=== PATIENT | female | born 1990 ===

== ENCOUNTER → 2019-12-09 15:51 | Outpatient (ROUT) | payer OTHER, MEDICAID, SELFPAY | PROVIDERS: Visit Provider Nurse Practitioner Obstetrics & Gynecology | DX: Z34.90 Encounter for supervision of normal pregnancy, unspecified, unspecified trimester (principal); Z36.85 Encounter for antenatal screening for Streptococcus B; Z3A.36 36 weeks gestation of pregnancy | CPT/HCPCS: 87081 ==

== ENCOUNTER 2020-01-06 23:17 | Inpatient (IN) | payer OTHER, MEDICAID, SELFPAY ==
[2020-01-06 23:35] VITALS: BP 101/63
--- NOTE | 2020-01-06 23:37 | P.HPOB_ITS ---
OB HPI Date/Time Date of admission: 01/06/20 Date Patient Seen: 01/06/20 Time Patient Seen: 23:20 History of Present Condition Chief complaint: evaluation of labor : 1 Para: 0 Estimated Date of Delivery: 01/04/20 Estimated Gestational Age (weeks): 40.2 Narrative: Francheska Stringer is a 29 year old female @ 40wks2 days by sure LMP and early US who presents for evaluation of labor. Has had strong contractions since 8pm. +FM. NO VB or LOF. Breathing through regular contractions, feeling lots of low back pain. Uncomplicated PN care w/ CNM. Desires low intervention , declines SL IV. , Eliel is present and supportive. History of Present care: good care, initiated at week # (11), number of visits (10) and pounds weight gain (28) Dating criteria: LMP confirmed by 1st trimester US Ultrasounds: normal mid trimester US Obstetrical complications: none Medical complications: none Preadmission Labs Blood type: O (+) positive -: Antibody screen: negative, GBS status: negative, HBsAG: negative, HIV: negative and RPR/VDLR: negative -: Chlamydia screen: not detected and Gonorrhea screen: not detected -: Rubella: immune HCT: 33.1 HCAB: negative 1 hr GTT: 94 Evaluation Evaluation Baseline heart rate: 150 Variability: Moderate (11-25) monitor accelerations: Present monitor decelerations: Absent Uterine Contraction Intensity: Strong/Firm Category of Tracing: Reactive Cervical dilation (cm): 4 Cervical effacement (%): 90 station: 0 PFSH Family History (Updated 01/07/20 @ 00:29 by Samantha Real CNM) Father Cancer Brother Schizophrenia Social History (Updated 01/07/20 @ 00:29 by Samantha Real CNM) marital status: household members: spouse lives independently: Yes Smoking Status: Never smoker Meds Home Medications and Allergies Home Medications Medication Instructions Recorded Confirmed Type 01/07/20 History ferrous sulfate 01/07/20 History Allergies Allergy/AdvReac Type Severity Reaction Status Date / Time No Known Drug Allergies Allergy Verified 01/07/20 00:31 Review of Systems Review of Systems ROS: Yes All systems reviewed with the patient and are negative except as ot herwise documented Exam Vital Signs (past 8 hours): BP 101/63, [id number], T35.9C Temporal Uterus Location (Fundal Height): 40 Presentation: vertex Objective Labs Result Diagrams: 01/06/20 23:57 Assessment and Plan Assessment and Plan Assessment and Plan narrative: A: Term primipara Active labor No indication for GBS prophylaxis Cat I FHR P: Admit, routine orders w/ CBC, T&S and COVID19 screen. May switch to IA. Labor support, PRN. Reassess in 4 hours or sooner, PRN.
[2020-01-07 00:08] LABS: Add Manual Diff / Slide Review NO; Basophils Absolute Auto 100 /uL (0-100); Basophils Percent Auto 0.8 % (0-2); Eosinophils Absolute Auto 500 /uL (0-450); Eosinophils Percent Auto 3.1 % (2-4); Hematocrit 38.2 % (36-46); Lymphocytes Absolute Auto 1800 /uL (1100-4500); Lymphocytes Percent Auto 11.4 % (25-40); Mean Corpuscular Hemoglobin 31.4 PG (26-34); Mean Corpuscular Volume 92.4 fL (80-100); Monocytes Absolute Auto 1000 /uL (0-900); Monocytes Percent Auto 6.4 % (3-14); Neutrophils Absolute Auto 12500 /uL (1500-7000); Neutrophils Percent Auto 78.3 % (50-75); Platelet Count 226 X10^3/uL (150-400); Red Blood Cell Count 4.14 X10^6/uL (4.0-5.2); Red Cell Distribution Width 13.5 % (11.6-14.8); White Blood Cell Count 15.9 X10^3/uL (4.5-11.0)
[2020-01-07 01:00] LABS: COVID19 -Nasal RAPID Negative (Negative)
[2020-01-07] MEDS: CALCIUM CARBONATE 500 MG TAB 1000 MG PO (03:12)
--- NOTE | 2020-01-07 03:42 | PM.OBPNLAB ---
Date/Time Date Patient Seen: 01/07/20 Time Patient Seen: 03:20 Pain Control Pain control: tolerating well Comments: Moaning with strong contractions. Labored well in the tub for several hours. Now on hands and knees on the floor in the room w/ CUB and pillows. Declines CE. Labs: [id number] upon admission. Pelvic Exam Dilation (cm): 4 Effacement (%): 90 station: 0 Comments: Bloody show Contractions Contractions on admission: regular Monitor mode: Palpation Pitocin rate (mU/min): 0 Contraction frequency (min): 3 Contraction duration (min): 1 Contraction pattern: Regular Contraction intensity: Strong/Firm Status status: Category l Heart Rate Baseline: 140 Comments: FHR remains reassuring by IA Q30 minutes Assessment and Plan Assessment: active labor Plan: continuous present management Comments: Will defer CE until 6 hours from admission, per patient request. Continuous labor support. Reassess in 2 hours or sooner, PRN.
--- NOTE | 2020-01-07 08:02 | PM.OBPNLAB ---
Date/Time Date Patient Seen: 01/07/20 Time Patient Seen: 05:20 Pain Control Pain control: tolerating well Comments: Coping well, though very tired. Has been able to sleep for a few minutes between contractions. VS: BP 110/71, HR 85bpm, T36.4C Temporal Pelvic Exam Dilation (cm): 8 Effacement (%): 100 station: 0 Amniotic membrane status: Intact Contractions Monitor mode: Palpation Pitocin rate (mU/min): 0 Contraction frequency (min): 5 Contraction duration (min): 1 Contraction pattern: Regular Contraction intensity: Strong/Firm Status status: Category l Heart Rate Baseline: 140 Comments: Reassuring by IA Assessment and Plan Assessment: active labor Plan: continuous present management Comments: Countinue expectant management of labor with continuous labor support and IA. Anticipate NSVB.
[2020-01-07] MEDS: OXYTOCIN 10 UNIT/ML VIAL IM (10:13)
--- NOTE | 2020-01-07 10:42 | P.PCNOB_ITS ---
Labor & Delivery Delivery date: 01/07/20 Intrapartal events: None Cervical ripening method: none Induction method: none Delivery monitor: external FHT Route of delivery: L&D Laceration Description: Perineal - 2nd Degree Delivery repair: chromic (3.0) Estimated blood loss (mL): 300 Anesthesia type: None Narrative: Patient with spontaneous urge to push while on the toilet. Was able to push past anterior lip over a 30 minute period. FHR remained reassuring by intermittent auscultation throughout second stage. NSVB of a vigorous baby girl in CALLIE position. There was no NC and easy delivery of the shoulders after manual reduction of a compound left hand. [place] was placed on maternal ab domen for drying and skin to skin. Patient declined active management of the third stage of labor. After cessation of pulsation, the cord was double clamped by SNM and cut by FOB. hospital cord blood hold sample was collected. Gentle cord traction and single maternal push led to spontaneous, Schultze delivery of an apparently intact placenta, membranes and 3VC. Fundus was massaged firm with brisk bleeding. Pitocin 10 units IM was given at that time w/ patient's verbal consent. Inspection revealed a 2nd degree perineal laceration which was repaired in the usual fashion w/ 3.0 chromic under adequate 1% lidocaine local. Fundus firm with minimal bleeding at that time. QBL 300mL. Both mother and baby stable and skin to skin as I left the room. [place] Baby 1: Infant gender: Female Presentation: vertex position: Right Occiput Anterior Placenta delivery description: Spontaneous cord vessel description: 3 Vessels score (1 min): 9 score (5 min): 9 Narrative: Compound left hand Plan for aftercare: Routine pP orders. Anticipate d/c to home in am.
[2020-01-07] MEDS: DERMOPLAST SPRAY 20% 60 ML 1 SPRAY TOP (13:12)
[2020-01-07] MEDS: LANOLIN OINT 7 GM 1 APPLIC TOP (19:23)
--- NOTE | 2020-01-08 07:59 | P.DS_ITS ---
Discharge Providers Provider Date of admission: 01/06/20 23:17 Discharge Date: 01/08/20 Consults: 01/08/20 10:41 Consult to [employer]er Routine Comment: Discharge provider: Samantha Real CNM Summary Discharge Diagnosis (1) Second degree perineal laceration during delivery: Status: Acute Problem Details: Patient sitting up in bed, nursing her daughter, ready for d/c to home today. Voiding and ambulating independently. Lochia light, no clots. Perineum sore, but with less swelling. Has declined PO pain medication. Tolerating general diet. present and supportive. Time Spent with Patient Time attestation: Total time spent providing and/or coordinating discharge services: 25 min Objective Labs Result Diagrams: 01/06/20 23:57 Exam Vital Signs (past 8 hours): BP 104/62, [id number], RR14/min, T 98.4 Other: Fundis firm @ u-1, lochia light, no clots, perineum well approximated. Psych Appearance: grossly normal Affect: normal affect Thought Process: normal Discharge Plan Discharge Plan Patient Disposition: Home Discharge orders & Medications Prescriptions: New acetaminophen 325 mg Tablet 650 mg PO Q6HR PRN (Reason: Pain, Mild (1-3)) 14 Days Qty: 60 RF: 1 docusate sodium [DOK] 100 mg Capsule 100 mg PO BID 14 Days Qty: 28 RF: 0 ibuprofen 600 mg Tablet 600 mg PO Q6HR PRN (Reason: Pain, Mild (1-3)) 14 Days Qty: 60 RF: 1 Continued 1 tablet RF: 0 Discontinued ferrous sulfate 1 tablet RF: 0 Follow up/Referrals: Samantha Real CNM [[employer]] - (Follow-up by Telehealth Friday01/21/20 @ 1000 Follow-up in office Friday02/18/20 @ 1:15pm) Diet/Activity/Treatments Diet: Regular Activity: Pelvic rest x 6 weeks Skin/Wound/Dressing Care Report to your healthcare provider any signs of infection, such as:: chills, fever, increased pain, unusual drainage and unusual redness Visit Report/Discharge Packet Instructions: DI for Depression
[2020-01-08] MEDS: PRENATAL VIT,CALC/IRON/FOLIC 1 TABLET 1 TAB PO (09:41)
[2020-01-08 10:50] VITALS: BP 102/63; PULSE 77; RESP 17; TEMP 36.6
[2020-01-08] MEDS: DOCUSATE 100 MG CAPSULE PO (12:45)
== END 2020-01-08 17:00 | disposition home or self-care (01) | DRG 560 ==
PROVIDERS: Admitting Provider Nurse Practitioner Obstetrics & Gynecology; Referring Provider Nurse Practitioner Obstetrics & Gynecology; Visit Provider Nurse Practitioner Obstetrics & Gynecology
DX: O70.1 Second degree perineal laceration during delivery (principal); Z3A.40 40 weeks gestation of pregnancy; Z37.0 Single live birth; Z11.59 Encounter for screening for other viral diseases
CPT/HCPCS: 36415; 59050; 85025; 86850; 86900; 86901; 87635; G0379; J2590

== ENCOUNTER 2023-04-29 11:44 | Outpatient (CLI) | payer OTHER, MEDICAID, SELFPAY ==
[2023-04-29] MEDS: TERBUTALINE 1 MG/ML VIAL 0.25 MG SUBCUT (12:21)
--- NOTE | 2023-04-29 12:34 | PM.OBTRLD ---
Visit Information Visit Information Date of evaluation: 04/29/23 Primary OB Provider: Selene Jade On-call OB Provider: David Meza Reason for Evaluation: Yes other Comments/Additional reasons for admission: Francheska is a gena 33 yo at 37+0 weeks EGA referred by her Machine Designer, Selene Jade LM, for evaluation and possible external cephalic version. The patient has had an uneventful today appropriate milestones this point but has been in breech presentation for most of the 3rd trimester. movement is normal and the patient is only having occasional [place] contractions. Nonstress test is reactive with baseline heart rate of 130 beats per minute, moderate variability, and no decelerations noted. Bedside ultrasound shows normal SYLVESTER with the in panda breech presentation, head in the maternal right upper quadrant, spine to the maternal left side, and a posterior/fundal grade 2 placenta with normal cord insertion and no visible placental abnormality. Vital Signs Vital Signs: BP: 113/72 P: 98 T: 36.8C PFSH Family History (Updated 01/07/20 @ 00:29 by Samantha Peters CNM) Father Cancer Brother Schizophrenia Social History (Updated 01/07/20 @ 00:29 by Samantha Peters CNM) marital status: household members: spouse lives independently: Yes Smoking Status: Never smoker Review of Systems Review of Systems Narrative: Problem-specific ROS positives included in HPI Exam HENMT Head: normal to inspection, normocephalic and atraumatic Eyes General: appearance normal, both eyes and all related structures Resp Effort & Inspection: normal respiratory effort and able to speak in complete sentences GI Inspection: normal to inspection Palpation: soft and no hepatosplenomegaly Uterus Location (Fundal Height): 36 Estimated Weight (lbs): 6 Extrem Right lower extremity: normal to inspection Left lower extremity: normal to inspection Evaluation Evaluation Baseline heart rate: 130 Variability: Moderate (11-25) monitor accelerations: Present Monitor Decelerations: Absent Uterine Contraction Intensity: Mild Category of Tracing: Reactive Status: Category l Diagnosis, Plan/Disposition Final Diagnosis (1) Breech presentation successfully converted, antepartum: Status: Acute Plan/Disposition Plan: EXTERNAL CEPHALIC VERSION PROCEDURE NOTE Following a reactive nonstress test and a bedside ultrasound demonstrating the findings as noted above, 0.25 mg of terbutaline SQ was administered. The breech was easily elevated out of the pelvis and the vertex was guided out of right upper quadrant in a counter-clockwise motion. The was easily converted to breech presentation in a single continuous motion which was confirmed by ultrasound. No discomfort was experienced by the patient with a reactive nonstress best noted both before and after the version procedure. An abdominal binder was placed after successful version of the infant to vertex presentation. Patient provided with post ECV instructions and labor precautions. A copy of this note will be forwarded to the patient's lining stitcher for her records. OB Disposition: home
== END 2023-04-29 13:29 | disposition home or self-care (01) ==
LOC: LABOR 13:19 → OB 05-01 10:27
PROVIDERS: Referring Provider Obstetrics & Gynecology; Visit Provider Obstetrics & Gynecology
DX: O32.1XX0 Maternal care for breech presentation, not applicable or unspecified (principal); Z3A.37 37 weeks gestation of pregnancy
CPT/HCPCS: 59025; 59050; 59412; 76815; 96372; G0378; G0379